=== PATIENT | female | born 1995 | race Caucasian/White ===

== ENCOUNTER 2018-09-12 20:16 | Inpatient (IN) | payer BC, OTHER ==
[~2018-09-12] VITALS: Ht 170.2 cm; Wt 70.1 kg
--- NOTE | 2018-09-12 20:19 | NUR ---
ED Nurse Note: pt brought in by [facility] from [facility] parking lot, pt drank bottle of acetone and took 95 pills of unknown substance, per EMS report. pt currently denies SI/HI/VH/AH, states she doesn't know why she took pills. pt states she felt sad and ingested med/acetone, states she called her friend and her friend called 911. Pt AA&ox4, gcs=15, sinus tach on front desk monitor, skin warm and dry, resp even and unlabored on RA pt reports nausea at this time will cont monitor. BS 88 on field
--- NOTE | 2018-09-12 20:25 | NUR ---
ED Nurse Note: Spoke with Dong at Poison Control regarding Vivance OD: Expect: Tachycardia; Aggitation; N/V. Benzos OK. Can cause seizures and EKG changes. With Q-T prolongation, give Magnesium 1-2 grams. Addendum: 09/12/18 at 2312 by MSCHRAGE Correction: Vyvbeth.
--- NOTE | 2018-09-12 20:30 | NUR ---
ED Nurse Note: accucheck at the bedside was 79, ERMD notified. noted pt vomiting x1, pink and white colored noted. pt cleaned and changed into gown, warm blanket provided for comfort, pt advised to notify staff if needed assist, ERMD aware of pt's condition.
[2018-09-12 20:35] VITALS: BP 114/70
[2018-09-12 21:10] LABS: BASOPHILS % (AUTO) 1.1 % (0.0-2.0); EOSINOPHILS % (AUTO) 0.5 % (0.0-3.0); HEMATOCRIT 38.4 % (37.0-47.0); HEMOGLOBIN 12.7 G/DL (12.0-16.0); LYMPHOCYTES % (AUTO) 20.3 % (20.0-45.0); MEAN CORPUSCULAR VOLUME 83 FL (80-99); MONOCYTES % (AUTO) 6.7 % (1.0-10.0); NEUTROPHILS % (AUTO) 71.4 % (45.0-75.0); PLATELET COUNT 249 K/UL (150-450); RED BLOOD COUNT 4.65 M/UL (4.20-5.40); RED CELL DISTRIBUTION WIDTH 12.6 % (11.6-14.8); WHITE BLOOD COUNT 8.6 K/UL (4.8-10.8)
[2018-09-12 21:12] LABS: APPEARANCE,URINE CLEAR; BILIRUBIN, URINE NEGATIVE (NEGATIVE); COLOR,URINE YELLOW; GLUCOSE, URINE (UA) NEGATIVE (NEGATIVE); KETONES,URINE 4+ (NEGATIVE); LEUKOCYTE ESTERASE ,URINE 1+ (NEGATIVE); NITRITE,URINE NEGATIVE (NEGATIVE); PH,URINE 6 (4.5-8.0); PROTEIN,URINE 1+ (NEGATIVE); UROBILINOGEN,URINE NORMAL MG/DL (0.0-1.0)
[2018-09-12 21:22] LABS: AMMONIA 35 umol/L (11-32); ANION GAP 16 mmol/L (5-15); BLOOD UREA NITROGEN 16 mg/dL (7-18); CALCIUM 9.2 MG/DL (8.5-10.1); CARBON DIOXIDE 20 MMOL/L (21-32); CHLORIDE 103 MMOL/L (98-107); CREATININE 0.8 MG/DL (0.55-1.30); POTASSIUM 3.2 MMOL/L (3.5-5.1); SODIUM 139 MMOL/L (136-145)
[2018-09-12 21:35] VITALS: BP 118/73
[2018-09-12 21:35] LABS: ALANINE AMINOTRANSFERASE 22 U/L (12-78); ALBUMIN 4.4 G/DL (3.4-5.0); ALBUMIN/GLOBULIN RATIO 1.2 (1.0-2.7); ALKALINE PHOSPHATASE 70 U/L (46-116); ASPARTATE AMINO TRANSFERASE 13 U/L (15-37); BILIRUBIN,TOTAL 0.7 MG/DL (0.2-1.0)
--- NOTE | 2018-09-12 21:36 | Emergency Room Report ---
History of Present Illness General Chief Complaint: Overdose Source: Patient Present Illness HPI The patient states that she was feeling sad and took an entire bottle of an over -the-counter antianxiety medication that she got at [facility]. She is unable to recall the name of the medication. She also took about 20 tablets of her Vyvanse. She states that she feels nauseated and has epigastric pain. She did vomit one time prior to arrival. She states that she has been feeling very depressed. She denies alcohol or other drug use. She has no other complaints. Allergies: Coded Allergies: No Known Allergies (Unverified , 09/12/18) Patient History Past Medical History: none, psych hx Social History: Denies: smoking, alcohol use, drug use Now: No Reviewed Nursing Documentation: PMH: Agreed; PSxH: Agreed Nursing Documentation-PMH History Of Psychiatric Problem: Yes - ANXIETY Review of Systems All Other Systems: negative except mentioned in HPI Physical Exam Vital Signs Date Time Temp Pulse Resp B/P (MAP) Pulse Ox O2 Delivery O2 Flow Rate FiO2 09/12/18 20:19 98.1 118 20 99 Room Air Sp02 EP Interpretation: reviewed, normal General Appearance: no apparent distress, alert, GCS 15, non-toxic Head: normocephalic, atraumatic Eyes: bilateral eye normal inspection, bilateral eye PERRL ENT: hearing grossly normal, normal pharynx, no angioedema, normal voice Neck: full range of motion, supple/symm/no masses Respiratory: chest non-tender, lungs clear, normal breath sounds, no respiratory distress, no retraction, no accessory muscle use, speaking full sentences Cardiovascular #1: no edema, tachycardia Gastrointestinal: normal bowel sounds, non tender, soft, non-distended, no guarding, no rebound Rectal: deferred Musculoskeletal: back normal, gait/station normal, normal range of motion, non- tender Neurologic: alert, oriented x3, responsive, motor strength/tone normal, sensory intact, speech normal Psychiatric: depressed affect Skin: normal color, no rash, warm/dry, well hydrated Medical Decision Making Diagnostic Impression: Primary Impression: Intentional drug overdose Additional Impressions: Depression Tylenol overdose ER Course This patient presents with an intentional drug overdose. She denies suicidal ideation. I did obtain a tox level. The acetaminophen level was elevated in the toxic range on the nomogram. I then went back to the patient and asked her if she ingested Tylenol. At first she stated no and then when I asked about acetaminophen she said yes that is what I took. I tried to clarify exactly how many tablets she took and she states that she is not sure she took about half the bottle. She is unsure of the strength of the acetaminophen. She is not sure how many tablets were in the bottle. The patient will be admitted to the ICU for Tylenol overdose. She was started on the Acetadote protocol. She was also given activated charcoal. This patient is critically ill. This patient required complex medical decision- making, aggressive intervention, extensive laboratory workup and monitoring. Critical care time: 40 minutes. Laboratory Tests Test 09/12/18 20:30 White Blood Count 8.6 K/UL (4.8-10.8) Red Blood Count 4.65 M/UL (4.20-5.40) Hemoglobin 12.7 G/DL (12.0-16.0) Hematocrit 38.4 % (37.0-47.0) Mean Corpuscular Volume 83 FL (80-99) Mean Corpuscular Hemoglobin 27.3 PG (27.0-31.0) Mean Corpuscular Hemoglobin Concent 33.1 G/DL (32.0-36.0) Red Cell Distribution Width 12.6 % (11.6-14.8) Platelet Count 249 K/UL (150-450) Mean Platelet Volume 6.4 FL (6.5-10.1) L Neutrophils (%) (Auto) 71.4 % (45.0-75.0) Lymphocytes (%) (Auto) 20.3 % (20.0-45.0) Monocytes (%) (Auto) 6.7 % (1.0-10.0) Eosinophils (%) (Auto) 0.5 % (0.0-3.0) Basophils (%) (Auto) 1.1 % (0.0-2.0) Urine Color Yellow Urine Appearance Clear Urine pH 6 (4.5-8.0) Urine Specific [place] 1.020 (1.005-1.035) Urine Protein 1+ (NEGATIVE) H Urine Glucose (UA) Negative (NEGATIVE) Urine Ketones 4+ (NEGATIVE) H Urine Blood Negative (NEGATIVE) Urine Nitrite Negative (NEGATIVE) Urine Bilirubin Negative (NEGATIVE) Urine Urobilinogen Normal MG/DL (0.0-1.0) Urine Leukocyte Esterase 1+ (NEGATIVE) H Urine RBC 0-2 /HPF (0 - 2) Urine WBC 2-4 /HPF (0 - 2) Urine Squamous Epithelial Cells Few /LPF (NONE/OCC) Urine Bacteria Moderate /HPF (NONE) H Urine Mucus Few /LPF (NONE/OCC) H Urine HCG, Qualitative Negative (NEGATIVE) Sodium Level 139 MMOL/L (136-145) Potassium Level 3.2 MMOL/L (3.5-5.1) L Chloride Level 103 MMOL/L (98-107) Carbon Dioxide Level 20 MMOL/L (21-32) L Anion Gap 16 mmol/L (5-15) H Blood Urea Nitrogen 16 mg/dL (7-18) Creatinine 0.8 MG/DL (0.55-1.30) Estimate Glomerular Filtration Rate > 60 mL/min (>60) Glucose Level 93 MG/DL (74-106) Lactic Acid Level Pending Calcium Level 9.2 MG/DL (8.5-10.1) Total Bilirubin Pending Aspartate Amino Transferase (AST) Pending Alanine Aminotransferase (ALT) Pending Alkaline Phosphatase Pending Ammonia 35 umol/L (11-32) H Troponin I Pending Total Protein Pending Albumin Pending Globulin Pending Thyroid Stimulating Hormone (TSH) Pending Salicylates Level Pending Urine Opiates Screen Negative (NEGATIVE) Acetaminophen Level Pending Urine Barbiturates Screen Negative (NEGATIVE) Phencyclidine (PCP) Screen Negative (NEGATIVE) Urine Amphetamines Screen Positive (NEGATIVE) H Urine Benzodiazepines Screen Negative (NEGATIVE) Urine Cocaine Screen Negative (NEGATIVE) Urine Marijuana (THC) Screen Negative (NEGATIVE) Serum Alcohol Pending EKG Diagnostic Results Rate: normal Rhythm: NSR ST Segments: no acute changes Rhythm Strip Diag. Results EP Interpretation: yes Rate: 100's Rhythm: no PVC's, no ectopy, other - S.tachycardia Last Vital Signs Date Time Temp Pulse Resp B/P (MAP) Pulse Ox O2 Delivery O2 Flow Rate FiO2 09/12/18 20:19 98.1 118 20 99 Room Air Disposition: ADMITTED INPATIENT Condition: Critical Referrals: NOT CHOSEN IPA/,REFERRING (PCP) Noreen Andres DO September 12, 2018 21:36
[2018-09-12] MEDS ORDERED: ACETADOTE IV ONE ×3 (21:45→22:00)
[2018-09-12] MEDS ORDERED: D5W IV ONE ×2 (21:45→22:00)
[2018-09-12] MEDS ORDERED: Activated Charcoal 50gm/240ml Btl ORAL ONE (22:00)
--- NOTE | 2018-09-12 22:00 | NUR ---
ED Nurse Note: noted redness and pt c/o itching on EKG lead area, ekg leads removed for possible allergic reaction, will cont monitor. pt NSR.
--- NOTE | 2018-09-12 22:20 | NUR ---
ED Nurse Note: pt states she has difficulty breathing, no sx resp distress noted, pt currently o2sat 100%, o2 via NC 2L/min started for comfort, pt reports feeling better with oxygen. Notified ERMD, will cont monitor.
[2018-09-12 22:35] VITALS: BP 113/68
[2018-09-12] MEDS ORDERED: LORazepam Inj 2mg/ml 1ml IV PRN (23:00)
[2018-09-12] MEDS ORDERED: Morphine Sulfate 2mg/ml Inj(IV/IM USE ONLY) IVP PRN (23:00)
--- NOTE | 2018-09-12 23:12 | NUR ---
ED Nurse Note: called pipeline.
--- NOTE | 2018-09-12 23:12 | NUR ---
ED Nurse Note: Pt now admits that the Vyvance she took, was for someone else.
[2018-09-12] MEDS: D5 1/2NS 1,000 ML IV SCH (23:24)
--- NOTE | 2018-09-12 23:24 | NUR ---
ED Nurse Note: pt c/o headache, nausea, noted vomiting episode x 1 (black color after administration of charcoal), reports she feels anxious from her condition, medication administered per order. will cont monitor.
--- NOTE | 2018-09-12 23:30 | NUR ---
ED Nurse Note: report given to RN James, pt cleaned and changed, advised RN regarding pt possible allergic to EKG leads.
--- NOTE | 2018-09-12 23:50 | NUR ---
ED Nurse Note: pt transferred to ICU floor, all belongings sent w/ pt, pt vss, resp even and unlabored on o2 via NC = 2L/min, pt states she feels better now after vomiting and medication, airway intact, endorsed care to RN Slava, notified RN regarding about redraw tylenol level at 430am. iv intact and patent.
[2018-09-13] VITALS (23 sets, daily range): BP systolic 11–123; BP diastolic 45–92
--- NOTE | 2018-09-13 | NUR ---
NURSE NOTES: Admitted from ED this 23yo female for drug overdose. Pt arrives with [employer]USTRI[employer] via lucretia in no apparent distress; drowsy but follow commands. On 2l via ZOHREH. RAMOS's; afebrile, NSR, BP 96/60. Currently denies pain. Denies SOB, denies N/V. Pt has PIV on left wrist area, g20 with Acetadote 3100mg in 500ml D5W infusing at 129mls/h as well as D51/2NS infusing at 50ml/h on RAC. Skin cool to touch but dry and intact. No finley cath but pt's bladder area soft; denies having the urge to void. Pt answers questions appropriately but drowsy and falls back to sleep on interview. Denies having suicidal ideation. Will monitor neuro status, level of consciousness, will monitor for signs of bleeding
--- NOTE | 2018-09-13 02:00 | NUR ---
NURSE NOTES: Po[facility] Control Center called to check on pt's status and made sure the protocol for Tylenol overdose is followed. Called ERMD to put on the order for 16hr Acetadote after the present bag finishes and to do Tylenol level, LFT's, coag profile on the 15th hr (1800H;09/13)
[2018-09-13] MEDS ORDERED: D5W IV ONE ×2 (02:30→02:45)
[2018-09-13] MEDS ORDERED: ACETADOTE IV ONE ×2 (02:30→02:45)
--- NOTE | 2018-09-13 03:30 | NUR ---
NURSE NOTES: Acetadote 100mg/kg BW in 1000ml D5W started to run for 16hrs.(wt based on actual wt of 70kgs). Night locker unable to produce label due to the printer being out of order. Med bottle and IV bag barcodes scanned.
[2018-09-13 05:09] LABS: BASOPHILS % (AUTO) 0.8 % (0.0-2.0); HEMATOCRIT 38.3 % (37.0-47.0); HEMOGLOBIN 12.7 G/DL (12.0-16.0); LYMPHOCYTES % (AUTO) 14.2 % (20.0-45.0); MEAN CORPUSCULAR VOLUME 85 FL (80-99); MONOCYTES % (AUTO) 6.3 % (1.0-10.0); NEUTROPHILS % (AUTO) 78.6 % (45.0-75.0); PLATELET COUNT 283 K/UL (150-450); RED BLOOD COUNT 4.53 M/UL (4.20-5.40); WHITE BLOOD COUNT 7.9 K/UL (4.8-10.8)
--- NOTE | 2018-09-13 05:30 | NUR ---
NURSE NOTES: Still sleepy but responds appropriately to questions. No seizures noted. VSS. No ectopy, afebrile. Denies N/V; denies abd pain, denies chest pains. IV sites intact.
[2018-09-13 05:33] LABS: ALANINE AMINOTRANSFERASE 17 U/L (12-78); ALBUMIN 3.7 G/DL (3.4-5.0); ALKALINE PHOSPHATASE 62 U/L (46-116); ANION GAP 13 mmol/L (5-15); ASPARTATE AMINO TRANSFERASE 15 U/L (15-37); BILIRUBIN,TOTAL 0.6 MG/DL (0.2-1.0); BLOOD UREA NITROGEN 14 mg/dL (7-18); CALCIUM 8.4 MG/DL (8.5-10.1); CARBON DIOXIDE 23 MMOL/L (21-32); CHLORIDE 101 MMOL/L (98-107); CREATININE 0.7 MG/DL (0.55-1.30); POTASSIUM 3.2 MMOL/L (3.5-5.1); SODIUM 137 MMOL/L (136-145)
--- NOTE | 2018-09-13 07:13 | NUR ---
HAND-OFF: Report given to Keira Saenz RN.
--- NOTE | 2018-09-13 07:14 | NUR ---
NURSE NOTES: Report received from LULI Ramirez. Pt is sleeping in bed. Oriented x4. Able to answer for questions and follow commands. Sinus rhythm on monitoring engineer. On N/C 2L. 100%. No respiratory distress noted. Kept NPO as per order. IV to left wrist G20 and right AC G20 patent and asymptomatic. Pt is on D5 1/2NS at 50cc/hr and Acetadote 7000mg at 64.688cc/hr. Bed in lowest position. Call light within reach. Will resume plan of care.
--- NOTE | 2018-09-13 09:31 | Pulmonolgy Critical Care Note ---
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 Discussed with: nurses, consultants, human services case managerwireless retail manager - Objective Last 24 Hour Vital Signs Date Time Temp Pulse Resp B/P (MAP) Pulse Ox O2 Delivery O2 Flow Rate FiO2 09/13/18 07:14 Nasal Cannula 2.0 28 09/13/18 07:14 100 Nasal Cannula 2.0 28 09/13/18 07:00 86 24 101/71 (81) 100 09/13/18 06:00 64 15 99/63 (75) 100 09/13/18 05:00 66 15 96/61 (73) 100 09/13/18 04:00 Nasal Cannula 2.0 09/13/18 04:00 97.7 73 16 89/49 (62) 100 09/13/18 03:00 71 17 97/60 (72) 100 09/13/18 02:00 71 17 97/61 (73) 100 09/13/18 01:00 72 17 92/50 (64) 100 09/13/18 00:00 97.9 71 16 96/60 (72) 100 09/13/18 00:00 71 09/13/18 00:00 Nasal Cannula 2.0 09/12/18 23:50 97.2 82 18 112/67 100 Nasal Cannula 2.0 09/12/18 22:35 97.2 86 16 113/68 99 Room Air 09/12/18 21:35 98.1 82 18 118/73 99 Room Air 09/12/18 20:35 87 18 Room Air 09/12/18 20:35 98.1 87 18 114/70 99 Room Air 09/12/18 20:19 98.1 118 20 99 Room Air Status: awake Condition: critical Neck: full ROM Lungs: clear Heart: HR/BP stable, regular Abdomen: non-tender, feeding tube Extremities: edema Decubiti: location Micro: Microbiology Date/Time Source Procedure Growth Status 09/12/18 23:55 Rectum Received Accucheck: 79 Critical Care - Subjective ROS Limited/Unobtainable: Yes Interval Events: 23 year old female brought in by paramedics after taking an entire bottle of an [id number] antianxiety medication that she got at [facility]. She is unable to recall the name of the medication. She also took about 20 tablets of her Vyvanse. She states that she feels nauseated and has epigastric pain. She did vomit one time prior to arrival. She states that she has been feeling very depressed. Condition: critical FI02: 28 I&O: Intake and Output 09/12/18 09/13/18 19:00 07:00 Intake Total 873.676 ml Balance 873.676 ml Intake Oral 0 ml IV Total 873.676 ml # Voids 1 Labs: Laboratory Tests Test 09/12/18 20:29 09/12/18 20:30 09/13/18 04:20 Arterial Blood pH 7.422 (7.350-7.450) Arterial Blood Partial Pressure CO2 29.4 mmHg (35.0-45.0) L Arterial Blood Partial Pressure O2 123.7 mmHg (75.0-100.0) H Arterial Blood HCO3 18.7 mmol/L (22.0-26.0) L Arterial Blood Oxygen Saturation 97.9 % (95-100) Arterial Blood Base Excess -4.4 (-2-2) L Sher Test Positive White Blood Count 8.6 K/UL (4.8-10.8) 7.9 K/UL (4.8-10.8) Red Blood Count 4.65 M/UL (4.20-5.40) 4.53 M/UL (4.20-5.40) Hemoglobin 12.7 G/DL (12.0-16.0) 12.7 G/DL (12.0-16.0) Hematocrit 38.4 % (37.0-47.0) 38.3 % (37.0-47.0) Mean Corpuscular Volume 83 FL (80-99) 85 FL (80-99) Mean Corpuscular Hemoglobin 27.3 PG (27.0-31.0) 28.0 PG (27.0-31.0) Mean Corpuscular Hemoglobin Concent 33.1 G/DL (32.0-36.0) 33.0 G/DL (32.0-36.0) Red Cell Distribution Width 12.6 % (11.6-14.8) 13.0 % (11.6-14.8) Platelet Count 249 K/UL (150-450) 283 K/UL (150-450) Mean Platelet Volume 6.4 FL (6.5-10.1) L 7.1 FL (6.5-10.1) Neutrophils (%) (Auto) 71.4 % (45.0-75.0) 78.6 % (45.0-75.0) H Lymphocytes (%) (Auto) 20.3 % (20.0-45.0) 14.2 % (20.0-45.0) L Monocytes (%) (Auto) 6.7 % (1.0-10.0) 6.3 % (1.0-10.0) Eosinophils (%) (Auto) 0.5 % (0.0-3.0) 0.0 % (0.0-3.0) Basophils (%) (Auto) 1.1 % (0.0-2.0) 0.8 % (0.0-2.0) Urine Color Yellow Urine Appearance Clear Urine pH 6 (4.5-8.0) Urine Specific [place] 1.020 (1.005-1.035) Urine Protein 1+ (NEGATIVE) H Urine Glucose (UA) Negative (NEGATIVE) Urine Ketones 4+ (NEGATIVE) H Urine Blood Negative (NEGATIVE) Urine Nitrite Negative (NEGATIVE) Urine Bilirubin Negative (NEGATIVE) Urine Urobilinogen Normal MG/DL (0.0-1.0) Urine Leukocyte Esterase 1+ (NEGATIVE) H Urine RBC 0-2 /HPF (0 - 2) Urine WBC 2-4 /HPF (0 - 2) Urine Squamous Epithelial Cells Few /LPF (NONE/OCC) Urine Bacteria Moderate /HPF (NONE) H Urine Mucus Few /LPF (NONE/OCC) H Urine HCG, Qualitative Negative (NEGATIVE) Sodium Level 139 MMOL/L (136-145) 137 MMOL/L (136-145) Potassium Level 3.2 MMOL/L (3.5-5.1) L 3.2 MMOL/L (3.5-5.1) L Chloride Level 103 MMOL/L (98-107) 101 MMOL/L (98-107) Carbon Dioxide Level 20 MMOL/L (21-32) L 23 MMOL/L (21-32) Anion Gap 16 mmol/L (5-15) H 13 mmol/L (5-15) Blood Urea Nitrogen 16 mg/dL (7-18) 14 mg/dL (7-18) Creatinine 0.8 MG/DL (0.55-1.30) 0.7 MG/DL (0.55-1.30) Estimat Glomerular Filtration Rate > 60 mL/min (>60) > 60 mL/min (>60) Glucose Level 93 MG/DL (74-106) 154 MG/DL (74-106) H Lactic Acid Level 1.40 mmol/L (0.4-2.0) Calcium Level 9.2 MG/DL (8.5-10.1) 8.4 MG/DL (8.5-10.1) L Total Bilirubin 0.7 MG/DL (0.2-1.0) 0.6 MG/DL (0.2-1.0) Aspartate Amino Transf (AST/SGOT) 13 U/L (15-37) L 15 U/L (15-37) Alanine Aminotransferase (ALT/SGPT) 22 U/L (12-78) 17 U/L (12-78) Alkaline Phosphatase 70 U/L (46-116) 62 U/L (46-116) Ammonia 35 umol/L (11-32) H Troponin I 0.000 ng/mL (0.000-0.056) Total Protein 8.2 G/DL (6.4-8.2) 7.3 G/DL (6.4-8.2) Albumin 4.4 G/DL (3.4-5.0) 3.7 G/DL (3.4-5.0) Globulin 3.8 g/dL 3.6 g/dL Albumin/Globulin Ratio 1.2 (1.0-2.7) 1.0 (1.0-2.7) Thyroid Stimulating Hormone (TSH) 1.175 uiU/mL (0.358-3.740) Salicylates Level 2.5 ug/mL (2.8-20) L Urine Opiates Screen Negative (NEGATIVE) Acetaminophen Level 267 MCG/ML (10-30) *H Urine Barbiturates Screen Negative (NEGATIVE) Phencyclidine (PCP) Screen Negative (NEGATIVE) Urine Amphetamines Screen Positive (NEGATIVE) H Urine Benzodiazepines Screen Negative (NEGATIVE) Urine Cocaine Screen Negative (NEGATIVE) Urine Marijuana (THC) Screen Negative (NEGATIVE) Serum Alcohol < 3 mg/dL Clarence Lovell MD September 13, 2018 09:31
--- NOTE | 2018-09-13 09:58 | NUR ---
NURSE NOTES: Poison control called. Updated pt's current status. Dr Lovell here to see the patient. Updated him with pt's current condition. Orders received. Will carry out the orders.
--- NOTE | 2018-09-13 10:16 | NUR ---
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 ACETAMINOPHEN 267 IS:ACETYLCYSTEINE 247.5ml IV ACETYLCYSTEINE 515.5ml IV CHARCOAL 50gm ZOFRAN 4mg IVP ADMITTED TO ICU DCP TO BE DETERMINED DEPENDING ON THE CARE NEEDED AT TIME OF DC
[2018-09-13] MEDS: Heparin 5000 units/ml inj SUBQ SCH ×2 (10:29→20:48)
--- NOTE | 2018-09-13 10:53 | General Progress Note ---
Assessment/Plan Problem List: (1) Tylenol overdose ICD Codes: T39.1X1A - Poisoning by 4-Aminophenol derivatives, accidental ( unintentional), initial encounter SNOMED: 191399679 (2) Depression ICD Codes: F32.9 - Major depressive disorder, single episode, unspecified SNOMED: 22219640 (3) Intentional drug overdose ICD Codes: T50.902A - Poisoning by unspecified drugs, medicaments and biological substances, intentional self-harm, initialencounter SNOMED: 80063192 Assessment/Plan: no elevated LFT's on mucomyst transferring out of ICU will fu Subjective ROS Limited/Unobtainable: Yes Allergies: Coded Allergies: No Known Allergies (Unverified , 09/12/18) Objective Last 24 Hour Vital Signs Date Time Temp Pulse Resp B/P (MAP) Pulse Ox O2 Delivery O2 Flow Rate FiO2 09/13/18 07:14 Nasal Cannula 2.0 28 09/13/18 07:14 100 Nasal Cannula 2.0 28 09/13/18 07:00 86 24 101/71 (81) 100 09/13/18 06:00 64 15 99/63 (75) 100 09/13/18 05:00 66 15 96/61 (73) 100 09/13/18 04:00 Nasal Cannula 2.0 09/13/18 04:00 97.7 73 16 89/49 (62) 100 09/13/18 03:00 71 17 97/60 (72) 100 09/13/18 02:00 71 17 97/61 (73) 100 09/13/18 01:00 72 17 92/50 (64) 100 09/13/18 00:00 97.9 71 16 96/60 (72) 100 09/13/18 00:00 71 09/13/18 00:00 Nasal Cannula 2.0 09/12/18 23:50 97.2 82 18 112/67 100 Nasal Cannula 2.0 09/12/18 22:35 97.2 86 16 113/68 99 Room Air 09/12/18 21:35 98.1 82 18 118/73 99 Room Air 09/12/18 20:35 87 18 Room Air 09/12/18 20:35 98.1 87 18 114/70 99 Room Air 09/12/18 20:19 98.1 118 20 99 Room Air Intake and Output 09/12/18 09/13/18 19:00 07:00 Intake Total 873.676 ml Balance 873.676 ml Intake Oral 0 ml IV Total 873.676 ml # Voids 1 Laboratory Tests 09/12/18 20:29: Arterial Blood pH 7.422, Arterial Blood Partial Pressure CO2 29.4L, Arterial Blood Partial Pressure O2 123.7H, Arterial Blood HCO3 18.7L, Arterial Blood Oxygen Saturation 97.9, Arterial Blood Base Excess -4.4L, Sher Test Positive 09/12/18 20:30: White Blood Count 8.6, Red Blood Count 4.65, Hemoglobin 12.7, Hematocrit 38.4, Mean Corpuscular Volume 83, Mean Corpuscular Hemoglobin 27.3, Mean Corpuscular Hemoglobin Concent 33.1, Red Cell Distribution Width 12.6, Platelet Count 249, Mean Platelet Volume 6.4L, Neutrophils (%) (Auto) 71.4, Lymphocytes (%) (Auto) 20.3, Monocytes (%) (Auto) 6.7, Eosinophils (%) (Auto) 0.5, Basophils (%) (Auto ) 1.1, Urine Color Yellow, Urine Appearance Clear, Urine pH 6, Urine Specific [place] 1.020, Urine Protein 1+H, Urine Glucose (UA) Negative, Urine Ketones 4+H , Urine Blood Negative, Urine Nitrite Negative, Urine Bilirubin Negative, Urine Urobilinogen Normal, Urine Leukocyte Esterase 1+H, Urine RBC 0-2, Urine WBC 2-4 , Urine Squamous Epithelial Cells Few, Urine Bacteria ModerateH, Urine Mucus FewH, Urine HCG, Qualitative Negative, Sodium Level 139, Potassium Level 3.2L, Chloride Level 103, Carbon Dioxide Level 20L, Anion Gap 16H, Blood Urea Nitrogen 16, Creatinine 0.8, Estimat Glomerular Filtration Rate > 60, Glucose Level 93, Lactic Acid Level 1.40, Calcium Level 9.2, Total Bilirubin 0.7, Aspartate Amino Transf (AST/SGOT) 13L, Alanine Aminotransferase (ALT/SGPT) 22, Alkaline Phosphatase 70, Ammonia 35H, Troponin I 0.000, Total Protein 8.2, Albumin 4.4, Globulin 3.8, Albumin/Globulin Ratio 1.2, Thyroid Stimulating Hormone (TSH) 1.175, Salicylates Level 2.5L, Urine Opiates Screen Negative, Acetaminophen Level 267*H, Urine Barbiturates Screen Negative, Phencyclidine ( PCP) Screen Negative, Urine Amphetamines Screen PositiveH, Urine Benzodiazepines Screen Negative, Urine Cocaine Screen Negative, Urine Marijuana (THC) Screen Negative, Serum Alcohol < 3 09/13/18 04:20: White Blood Count 7.9, Red Blood Count 4.53, Hemoglobin 12.7, Hematocrit 38.3, Mean Corpuscular Volume 85, Mean Corpuscular Hemoglobin 28.0, Mean Corpuscular Hemoglobin Concent 33.0, Red Cell Distribution Width 13.0, Platelet Count 283, Mean Platelet Volume 7.1, Neutrophils (%) (Auto) 78.6H, Lymphocytes (%) (Auto) 14.2L, Monocytes (%) (Auto) 6.3, Eosinophils (%) (Auto) 0.0, Basophils (%) (Auto ) 0.8, Sodium Level 137, Potassium Level 3.2L, Chloride Level 101, Carbon Dioxide Level 23, Anion Gap 13, Blood Urea Nitrogen 14, Creatinine 0.7, Estimat Glomerular Filtration Rate > 60, Glucose Level 154H, Calcium Level 8.4L, Total Bilirubin 0.6, Aspartate Amino Transf (AST/SGOT) 15, Alanine Aminotransferase ( ALT/SGPT) 17, Alkaline Phosphatase 62, Total Protein 7.3, Albumin 3.7, Globulin 3.6, Albumin/Globulin Ratio 1.0 Height (Feet): 5 Height (Inches): 7.00 Weight (Pounds): 154 General Appearance: no apparent distress EENT: normal ENT inspection Neck: supple Cardiovascular: normal rate Respiratory/Chest: decreased breath sounds Abdomen: normal bowel sounds, non tender, soft Extremities: non-tender Eulalio Camacho MD September 13, 2018 10:53
--- NOTE | 2018-09-13 12:07 | NUR ---
NURSE NOTES: Dr Medina here to see the patient. Order for regular diet received, noted, and carried out. Will also hold transfer until we get Acetaminophen and LFT levels as per Dr Medina's order.
--- NOTE | 2018-09-13 12:26 | History & Physical ---
History and Physical History & Physicial Logan Medina MD September 13, 2018 12:26
--- NOTE | 2018-09-13 14:10 | NUR ---
Social Work This Sw met with patient, currently in the ICU to provide support. Patient is listed as self pay; patient explains she is on her mothers insurance (this SW informed patient for mother to bring in copy of insurance cards as able, to be provided to admitting). Patient plans to discharge to home with her mother, who can assist as needed. Patient declined substance abuse. 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 No other needs or concerns at this time.
--- NOTE | 2018-09-13 14:35 | NUR ---
NURSE NOTES: Pt had 80% of dinner at 1300. Pt is sleeping in bed. No acute distress noted. Afebrile. Attended all needs. Will continue to monitor.
--- NOTE | 2018-09-13 15:22 | Cardiology Report ---
APPROVED REPORT EKG Measurement Heart [id number] FL [id number] Sinus tachycardia Otherwise normal ECG
--- NOTE | 2018-09-13 16:00 | NUR ---
*-* INSURANCE *-* ALL CLINICALS AND REVIEWS HAVE BEEN FAXED TO: LILIANA PARR AUTH# [id number] FAX ALL CLINICALS TO [phone] Addendum: 09/13/18 at 1617 by CAIO QUINTANA NCM:[place] [phone] [place] [phone] REF#[id number]
--- NOTE | 2018-09-13 17:05 | NUR ---
NURSE NOTES: Dr Condon here to see the patient. Updated her with pt's current condition. Pt was assisted to walk to the restroom to void. Pt is back to bed and resting. No acute distress noted.
[2018-09-13] MEDS: D5 1/2NS 1,000 ML IV SCH (17:49)
[2018-09-13 18:13] LABS: ALANINE AMINOTRANSFERASE 21 U/L (12-78); ALBUMIN 3.7 G/DL (3.4-5.0); ALKALINE PHOSPHATASE 63 U/L (46-116); ASPARTATE AMINO TRANSFERASE 13 U/L (15-37); BILIRUBIN,DIRECT 0.1 MG/DL (0.0-0.3); BILIRUBIN,TOTAL 0.4 MG/DL (0.2-1.0)
[2018-09-13 18:32] LABS: INR 1.2 (0.9-1.1)
--- NOTE | 2018-09-13 19:24 | NUR ---
HAND-OFF: Report given to LULI Ramirez.
--- NOTE | 2018-09-13 19:30 | NUR ---
NURSE NOTES: Received pt in no acute distress; AAOx4; RAMOS's, currently denies pains, denies N/V; denies abdominal pains; denies SOB. On RA saturating 100%. afebrile, NSR; BP stable. PIV sites on RAC patent with IVF of D51/2NS infusing at 50ml/h. HL on Left wrist area intact. Acetadote infusion just ended. Pt for transfer to Med Surg floor with sitter. Plan of care explained to pt. Denies suicidal ideation.
--- NOTE | 2018-09-13 19:45 | History and Physical Report ---
DATE OF ADMISSION: 09/12/2018 CHIEF COMPLAINT: Overdosed on medication. HISTORY OF PRESENT ILLNESS: This is a 23-year-old very delightful female with past medical history significant for depression and anxiety with history of recent tonsillectomy, who presented to the emergency room complaining about general body ache. She stated that she was feeling sad and depressed. She took [id number]-[id number] antiemetic medication acetaminophen, which she got from [employer] [facility]. She is unable to recall the name of the medication initially, but after that she stated it was acetaminophen and she took about 20 tablets of Vyvanse. She felt nauseated and started having abdominal pain, chest wall pain, and started vomiting prior to arrival to the ER. Shortly after initial evaluation in the emergency room, the patient was noted to have Tylenol level of 267 and amphetamine positive on urine drug screen, and subsequently the patient was admitted to the hospital with Tylenol overdose as well as major depression. PAST MEDICAL HISTORY/PAST SURGICAL HISTORY: As above, history of depression and anxiety as well as tonsillectomy. MEDICATIONS: At home, please refer to medication reconciliation. ALLERGIES: No known drug allergies. SOCIAL HISTORY: Denies any substance abuse. Denies any alcohol abuse. 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 She lives with her mother. FAMILY HISTORY: Noncontributory. REVIEW OF SYSTEMS: Mostly as above. Denies any dysuria, frequency, or hematuria. Complained about chest wall tenderness. Denies any loss of consciousness. Denies any fall or head trauma. Denies any prior history of suicidal attempts. She does not have own gun, or she denies any history of prior inpatient psychiatric requirement. PHYSICAL EXAMINATION: VITAL SIGNS: Temperature 98.1, pulse 118, respirations 20, and blood pressure 101/71. GENERAL: The patient is awake and responsive, in no acute distress. Poor eye contact. HEAD AND NECK: Pupils are equal and reactive to light. Extraocular movements intact. Neck was supple. No JVD. LUNGS: Good air entry. No wheeze or rales. HEART: S1, S2. Regular rhythm. No gallops. ABDOMEN: Soft, nondistended, and nontender. Positive bowel sounds. EXTREMITIES: No cyanosis, clubbing, or edema. NEUROLOGIC: Cranial nerves II through XII grossly intact. Motor is 5/5 in all extremities. Gait is intact. RECTAL/GENITOURINARY: Refused and deferred. PSYCHIATRIC: Mood and affect is intact. LABORATORY DATA: On admission from the ER, WBC 8.6, hemoglobin 12, hematocrit 38, and platelets 249. Sodium 139, potassium 3.2, chloride 103, bicarbonate 20, BUN 16, and creatinine 0.8. Glucose 93. Lactic acid is 1.40. Troponin 0.00. AST 13, ALT 22, and alkaline phosphatase 70. Ammonia level 0.00. Total protein is 8.2. TSH is 1.175. The patient's salicylate level is 2.5. Acetaminophen level is 267. Alcohol level less than 3. Urine drug screen is positive for amphetamine. ABG - pH of 7.42, pCO2 of 29, and pO2 of 123. Urinalysis, +4 ketones, moderate bacteria, and +1 leukocyte. Negative beta-hCG. ASSESSMENT: 1. Intentional overdose on the medication. 2. Tylenol overdose. 3. Depression and anxiety. PLAN: Admit the patient to ICU. We will follow up with the Tylenol toxicity protocol with the start on Acetadote. We will follow up with the charcoal. Monitor laboratory closely including liver function tests. Follow up with Dr. Lovell from Pulmonary Critical Care and Dr. Camacho from GI. Logan Medina M.D. DR: JESSICA JOB#: [id number] CC:
--- NOTE | 2018-09-13 21:40 | NUR ---
NURSE NOTES: Patient transferred up to 301-2 via hospital bed. Report taken from LULI Ramirez. Mikel Nelson at bedside. Addendum: 09/13/18 at 2208 by Ivan Delgado RN Patient is awake and in bed, A&Ox4. No signs of distress on room air. Having a minor headache, otherwise no further pain. Patient is in a pleasant mood. IV site Lt FA c/d/i and patent, no fluids. IV site Rt AC, c/d/i and patent running D5 1/2 NS @ 50mls/hr. Patient has no present skin issues. Continue to monitor, bed in lowest position, call light within reach.
--- NOTE | 2018-09-13 21:40 | NUR ---
NURSE NOTES: Transferred per bed to 301-2 with sitter. Pt AAOx4, no distress; VSS. Belongings with pt and accounted for; Hand off to LULI Love
[2018-09-13] MEDS ORDERED: LORazepam Inj 2mg/ml 1ml IV PRN ×2 (21:44→21:58)
[2018-09-13] MEDS ORDERED: Morphine Sulfate 2mg/ml Inj(IV/IM USE ONLY) IVP PRN ×2 (21:44→21:58)
[2018-09-13] MEDS ORDERED: D5 1/2NS 1,000 ML IV SCH ×2 (21:44→21:57)
--- NOTE | 2018-09-13 23:00 | Consultation ---
DATE OF CONSULTATION: 09/13/2018 HISTORY: This is a 23-year-old female with a history of ADD, anxiety, and depression, who was admitted to the ICU at [facility] status post suicide attempt, overdose on half a bottle of Tylenol. She does not know the number of the pills that she has taken. The patient stated that she is also taking Vyvanse that being prescribed by her psychiatrist who is her therapist's brother. The patient could not recall the name of the psychiatrist. The patient stated that recently she has been more depressed as her father is severely sick, has severe arthritis and planning for divorce, and the brother is also using drugs at home and has other behavior issues. The patient is going through a breakup her Vyvanse 70 mg b.i.d. The patient is more agitated and depressed. Therefore, she stated she took the Tylenol to alleviate her emotional pain not a suicide attempt. The patient has poor insight into the situation she is in. The patient lives along with her mother. No psychotic or manic symptoms. PAST PSYCHIATRIC HISTORY: She stated that she has no suicidal attempt in the past. No psychiatric hospitalization. She is seeing therapy for anxiety and depression. PAST MEDICAL HISTORY: Nonsignificant. ALLERGIES: No known drug allergies. MEDICATIONS: She takes only Vyvanse. She denies taking any other psychotropic medications. SUBSTANCE ABUSE HISTORY: Denies using illicit drug use or alcohol. She is a nonsmoker. MENTAL STATUS EXAMINATION: The patient is alert and oriented x4, cooperative, and pleasant. No psychomotor agitation or retardation. Mood is neutral. Affect is blunted. Congruent with mood and appropriate. Thought process is liner and goal oriented. Thought content, no suicidal or homicidal ideations. No psychotic symptoms. No delusions. No AVH. Insight and judgment are fair. ASSESSMENT: The patient is in ICU due to hypotension and unstable vital signs. The patient denies any suicide attempt. [place] I ADD, major depressive disorder, anxiety disorder. [place] II Deferred. [place] III Status post suicide attempt. [place] IV Low to moderate. [place] V 40. PLAN: 1. She is not an imminent danger to self or others. The patient is not holdable. 2. The patient will not be started on any psychotropic medication at this time. 3. We will attempt to gather collateral information from the family and psychiatrist. Ariela Condon M.D. DR: NATALIE JOB#: [id number] CC:
--- NOTE | 2018-09-13 23:00 | NUR ---
NURSE NOTES: Poison control called in regards to lab testing at 1740. They asked if further updated labs could be done to see if patient was still in need of medication since levels were within their specific range.
[2018-09-13 23:46] LABS: ANION GAP 9 mmol/L (5-15); BLOOD UREA NITROGEN 12 mg/dL (7-18); CALCIUM 8.5 MG/DL (8.5-10.1); CARBON DIOXIDE 27 MMOL/L (21-32); CHLORIDE 107 MMOL/L (98-107); CREATININE 0.8 MG/DL (0.55-1.30); POTASSIUM 3.4 MMOL/L (3.5-5.1); SODIUM 142 MMOL/L (136-145)
[2018-09-13 23:47] LABS: INR 1.2 (0.9-1.1)
[2018-09-13 23:50] LABS: ALANINE AMINOTRANSFERASE 20 U/L (12-78); ALBUMIN 3.5 G/DL (3.4-5.0); ALBUMIN/GLOBULIN RATIO 1.1 (1.0-2.7); ALKALINE PHOSPHATASE 64 U/L (46-116); ASPARTATE AMINO TRANSFERASE 12 U/L (15-37); BILIRUBIN,TOTAL 0.2 MG/DL (0.2-1.0)
--- NOTE | 2018-09-13 23:57 | NUR ---
NURSE NOTES: Followed up with poison control with updated labs. They will close the case per normal lab results.
[2018-09-14 00:19] VITALS: BP 107/73
[2018-09-14 04:03] VITALS: BP 105/60
--- NOTE | 2018-09-14 07:00 | General Progress Note ---
Assessment/Plan Problem List: (1) Tylenol overdose ICD Codes: T39.1X1A - Poisoning by 4-Aminophenol derivatives, accidental ( unintentional), initial encounter SNOMED: 132575411 (2) Depression ICD Codes: F32.9 - Major depressive disorder, single episode, unspecified SNOMED: 78738652 (3) Intentional drug overdose ICD Codes: T50.902A - Poisoning by unspecified drugs, medicaments and biological substances, intentional self-harm, initialencounter SNOMED: 69328377 Assessment/Plan: no elevated LFT's completed mucomyst fu psych will fu Subjective ROS Limited/Unobtainable: Yes Allergies: Coded Allergies: No Known Allergies (Unverified , 09/12/18) Subjective no event Objective Last 24 Hour Vital Signs Date Time Temp Pulse Resp B/P (MAP) Pulse Ox O2 Delivery O2 Flow Rate FiO2 09/14/18 04:03 97.5 66 17 105/60 (75) 98 09/14/18 00:19 98.1 77 16 107/73 (84) 98 09/13/18 22:12 Room Air 09/13/18 21:40 98.2 70 18 114/72 (86) 98 09/13/18 21:00 71 14 95/65 (75) 100 09/13/18 20:00 Room Air 09/13/18 20:00 98.3 73 14 93/52 (66) 100 09/13/18 20:00 73 09/13/18 19:11 98 Room Air 21 09/13/18 19:11 Room Air 21 09/13/18 19:00 105 16 105/69 (81) 97 09/13/18 18:00 83 14 110/82 (91) 100 09/13/18 17:00 92 19 98/65 (76) 100 09/13/18 16:00 98.6 83 17 98/65 (76) 99 09/13/18 16:00 Nasal Cannula 2.0 09/13/18 15:47 101 09/13/18 15:00 71 15 91/45 (60) 99 09/13/18 14:00 75 16 106/70 (82) 99 09/13/18 13:00 84 18 103/69 (80) 100 09/13/18 12:00 Nasal Cannula 2.0 09/13/18 12:00 97.9 76 17 103/69 (80) 100 09/13/18 11:59 89 09/13/18 11:00 79 18 99/55 (70) 100 09/13/18 10:00 80 18 123/72 (89) 99 09/13/18 09:00 80 15 112/75 (87) 100 09/13/18 08:00 98.2 62 16 107/92 (97) 100 09/13/18 08:00 Nasal Cannula 2.0 09/13/18 07:36 59 09/13/18 07:14 Nasal Cannula 2.0 28 09/13/18 07:14 100 Nasal Cannula 2.0 28 Intake and Output 09/13/18 09/14/18 19:00 07:00 Intake Total 1611.568 ml 690 ml Balance 1611.568 ml 690 ml Intake Oral 300 ml 640 ml IV Total 1311.568 ml 50 ml # Voids 2 1 Laboratory Tests 09/13/18 17:40: Prothrombin Time 13.0H, Prothromb Time International Ratio 1.2H, Activated Partial Thromboplast Time 30, Total Bilirubin 0.4, Direct Bilirubin 0.1, Aspartate Amino Transf (AST/SGOT) 13L, Alanine Aminotransferase (ALT/SGPT) 21, Alkaline Phosphatase 63, Total Protein 6.8, Albumin 3.7, Acetaminophen Level 10 09/13/18 23:26: Prothrombin Time 12.5H, Prothromb Time International Ratio 1.2H, Total Bilirubin 0.2, Aspartate Amino Transf (AST/SGOT) 12L, Alanine Aminotransferase ( ALT/SGPT) 20, Alkaline Phosphatase 64, Total Protein 6.8, Albumin 3.5, Acetaminophen Level < 2L, Sodium Level 142, Potassium Level 3.4L, Chloride Level 107, Carbon Dioxide Level 27, Anion Gap 9, Blood Urea Nitrogen 12, Creatinine 0.8, Estimat Glomerular Filtration Rate > 60, Glucose Level 128H, Calcium Level 8.5, Globulin 3.3, Albumin/Globulin Ratio 1.1 Height (Feet): 5 Height (Inches): 7.00 Weight (Pounds): 154 General Appearance: alert EENT: normal ENT inspection Neck: supple Cardiovascular: normal rate Respiratory/Chest: lungs clear Abdomen: normal bowel sounds, non tender, soft Extremities: non-tender Eulalio Camacho MD September 14, 2018 07:00
--- NOTE | 2018-09-14 07:11 | NUR ---
HAND-OFF: Report given to LULI Allen. Patient is in bed asleep, VS stable. Poison Control closed patients case last night..
--- NOTE | 2018-09-14 07:50 | NUR ---
NURSE NOTES: During shift change patient asleep with out no distress sitter at bed side, bed at low position locked will continue to monitor.
--- NOTE | 2018-09-14 08:30 | NUR ---
CHARGE NURSE NOTE: Spoke with patient, alert, oriented x4. Pt states that she does not have suicidal ideations.
--- NOTE | 2018-09-14 08:35 | Pulmonology Progress Note ---
Assessment/Plan Assessment/Plan ASSESSMENT Tylenol OD Intentional drug OD Amphetamine abuse Depression Hypokalemia Hypo Mg PLAN OF CARE transferred from ICU to MS floor IVF s/p Acedote LFT and bili stable Tylenol level down to <2, a/emetic prn diet as tolerated replace lytes further as needed DVT prophylaxis counselor at law on abstinence from street drugs replace Mg sitter at the bedside for safety pt follows up as outpt with therapist recommend psych eval for dc clearance, medically stable case discussed and evaluated by supervising physician Subjective Allergies: Coded Allergies: No Known Allergies (Unverified , 09/12/18) Subjective transferred to [place] stable still depressed, denies SI sitter at the bedside Objective Last 24 Hour Vital Signs Date Time Temp Pulse Resp B/P (MAP) Pulse Ox O2 Delivery O2 Flow Rate FiO2 09/14/18 04:03 97.5 66 17 105/60 (75) 98 09/14/18 00:19 98.1 77 16 107/73 (84) 98 09/13/18 22:12 Room Air 09/13/18 21:40 98.2 70 18 114/72 (86) 98 09/13/18 21:00 71 14 95/65 (75) 100 09/13/18 20:00 Room Air 09/13/18 20:00 98.3 73 14 93/52 (66) 100 09/13/18 20:00 73 09/13/18 19:11 98 Room Air 21 09/13/18 19:11 Room Air 21 09/13/18 19:00 105 16 105/69 (81) 97 09/13/18 18:00 83 14 110/82 (91) 100 09/13/18 17:00 92 19 98/65 (76) 100 09/13/18 16:00 98.6 83 17 98/65 (76) 99 09/13/18 16:00 Nasal Cannula 2.0 09/13/18 15:47 101 09/13/18 15:00 71 15 91/45 (60) 99 09/13/18 14:00 75 16 106/70 (82) 99 09/13/18 13:00 84 18 103/69 (80) 100 09/13/18 12:00 Nasal Cannula 2.0 09/13/18 12:00 97.9 76 17 103/69 (80) 100 09/13/18 11:59 89 09/13/18 11:00 79 18 99/55 (70) 100 09/13/18 10:00 80 18 123/72 (89) 99 09/13/18 09:00 80 15 112/75 (87) 100 Intake and Output 09/13/18 09/14/18 19:00 07:00 Intake Total 1611.568 ml 690 ml Balance 1611.568 ml 690 ml Intake Oral 300 ml 640 ml IV Total 1311.568 ml 50 ml # Voids 2 1 General Appearance: no acute distress HEENT: normocephalic, atraumatic, anicteric, mucous membranes moist Respiratory/Chest: lungs clear, no respiratory distress Cardiovascular: normal peripheral pulses, normal rate, regular rhythm, no JVD Abdomen: normal bowel sounds, soft, non tender, non distended Extremities: no edema Skin: rash Neurologic/Psychiatric: alert, oriented x 3, responsive, depressed affect Musculoskeletal: normal muscle bulk Microbiology Date/Time Source Procedure Growth Status 09/12/18 20:30 Urine,Clean Catch Urine Culture - Final NO GROWTH AFTER 48 HOURS Complete 09/12/18 23:55 Rectum Received Laboratory Tests 09/13/18 17:40: Prothrombin Time 13.0H, Prothromb Time International Ratio 1.2H, Activated Partial Thromboplast Time 30, Total Bilirubin 0.4, Direct Bilirubin 0.1, Aspartate Amino Transf (AST/SGOT) 13L, Alanine Aminotransferase (ALT/SGPT) 21, Alkaline Phosphatase 63, Total Protein 6.8, Albumin 3.7, Acetaminophen Level 10 09/13/18 23:26: Prothrombin Time 12.5H, Prothromb Time International Ratio 1.2H, Total Bilirubin 0.2, Aspartate Amino Transf (AST/SGOT) 12L, Alanine Aminotransferase ( ALT/SGPT) 20, Alkaline Phosphatase 64, Total Protein 6.8, Albumin 3.5, Acetaminophen Level < 2L, Sodium Level 142, Potassium Level 3.4L, Chloride Level 107, Carbon Dioxide Level 27, Anion Gap 9, Blood Urea Nitrogen 12, Creatinine 0.8, Estimat Glomerular Filtration Rate > 60, Glucose Level 128H, Calcium Level 8.5, Globulin 3.3, Albumin/Globulin Ratio 1.1 Current Medications Medications (Trade) Dose Ordered Sig/Roge Route PRN Reason Start Time Stop Time Status Last Admin Dose Admin Dextrose (Dextrose 50%) 25 ml Q30M PRN IV Hypoglycemia 09/13/18 22:00 10/12/18 22:59 Dextrose (Dextrose 50%) 50 ml Q30M PRN IV Hypoglycemia 09/13/18 22:00 10/13/18 21:59 Dextrose/Sodium Chloride 1,000 ml @ 50 mls/hr Q20H IV 09/13/18 21:57 10/13/18 21:56 Heparin Sodium (Porcine) (Heparin 5000 units/ml) 5,000 units EVERY 12 HOURS SUBQ 09/14/18 09:00 10/13/18 08:59 Lorazepam (Ativan 2mg/ml 1ml) 0.5 mg Q4H PRN IV For Anxiety 09/13/18 21:58 09/20/18 21:57 Morphine Sulfate (Morphine Sulfate) 1 mg Q4H PRN IVP For Pain 09/13/18 21:58 09/20/18 21:57 Ondansetron HCl (Zofran) 4 mg Q6H PRN IVP Nausea & Vomiting 09/13/18 21:58 10/13/18 21:57 Miladis Gordon [employer]ER September 14, 2018 08:35
[2018-09-14 08:48] VITALS: BP 109/71
[2018-09-14] MEDS ORDERED: Heparin 5000 units/ml inj SUBQ SCH ×2 (09:00)
[2018-09-14 09:43] LABS: ALANINE AMINOTRANSFERASE 16 U/L (12-78); ALBUMIN 3.4 G/DL (3.4-5.0); ALBUMIN/GLOBULIN RATIO 1.1 (1.0-2.7); ALKALINE PHOSPHATASE 57 U/L (46-116); ANION GAP 6 mmol/L (5-15); ASPARTATE AMINO TRANSFERASE 10 U/L (15-37); BILIRUBIN,TOTAL 0.2 MG/DL (0.2-1.0); BLOOD UREA NITROGEN 12 mg/dL (7-18); CALCIUM 8.5 MG/DL (8.5-10.1); CARBON DIOXIDE 26 MMOL/L (21-32); CHLORIDE 109 MMOL/L (98-107); CREATININE 0.8 MG/DL (0.55-1.30); SODIUM 141 MMOL/L (136-145)
[2018-09-14 12:00] VITALS: BP 102/64
--- NOTE | 2018-09-14 14:20 | Internal Med Progress Note ---
Subjective Date of Service: September 14, 2018 Physician Name Jose Hess Attending Physician Logan Medina MD Current Medications Medications (Trade) Dose Ordered Sig/Roge Route PRN Reason Start Time Stop Time Status Last Admin Dose Admin Dextrose (Dextrose 50%) 25 ml Q30M PRN IV Hypoglycemia 09/13/18 22:00 10/12/18 22:59 Dextrose (Dextrose 50%) 50 ml Q30M PRN IV Hypoglycemia 09/13/18 22:00 10/13/18 21:59 Dextrose/Sodium Chloride 1,000 ml @ 50 mls/hr Q20H IV 09/13/18 21:57 10/13/18 21:56 Heparin Sodium (Porcine) (Heparin 5000 units/ml) 5,000 units EVERY 12 HOURS SUBQ 09/14/18 09:00 10/13/18 08:59 09/14/18 09:03 Lorazepam (Ativan 2mg/ml 1ml) 0.5 mg Q4H PRN IV For Anxiety 09/13/18 21:58 09/20/18 21:57 Morphine Sulfate (Morphine Sulfate) 1 mg Q4H PRN IVP For Pain 09/13/18 21:58 09/20/18 21:57 Ondansetron HCl (Zofran) 4 mg Q6H PRN IVP Nausea & Vomiting 09/13/18 21:58 10/13/18 21:57 Allergies: Coded Allergies: No Known Allergies (Unverified , 09/12/18) ROS Limited/Unobtainable: No Constitutional: Reports: no symptoms HEENT: Reports: no symptoms Cardiovascular: Reports: no symptoms Respiratory: Reports: no symptoms Gastrointestinal/Abdominal: Reports: no symptoms Genitourinary: Reports: no symptoms Neurologic/Psychiatric: Reports: no symptoms Subjective 23 YO F admitted with tylenol overdose. Cover for Int Med-DR Medina. Objective Last Vital Signs Date Time Temp Pulse Resp B/P (MAP) Pulse Ox O2 Delivery O2 Flow Rate FiO2 09/14/18 08:48 97.5 79 16 109/71 (84) 98 09/13/18 22:12 Room Air 09/13/18 19:11 21 09/13/18 16:00 2.0 Laboratory Tests Test 09/13/18 17:40 09/13/18 23:26 09/14/18 08:45 Prothrombin Time 13.0 SEC (9.30-11.50) H 12.5 SEC (9.30-11.50) H Prothromb Time International Ratio 1.2 (0.9-1.1) H 1.2 (0.9-1.1) H Activated Partial Thromboplast Time 30 SEC (23-33) Total Bilirubin 0.4 MG/DL (0.2-1.0) 0.2 MG/DL (0.2-1.0) 0.2 MG/DL (0.2-1.0) Direct Bilirubin 0.1 MG/DL (0.0-0.3) Aspartate Amino Transf (AST/SGOT) 13 U/L (15-37) L 12 U/L (15-37) L 10 U/L (15-37) L Alanine Aminotransferase (ALT/SGPT) 21 U/L (12-78) 20 U/L (12-78) 16 U/L (12-78) Alkaline Phosphatase 63 U/L (46-116) 64 U/L (46-116) 57 U/L (46-116) Total Protein 6.8 G/DL (6.4-8.2) 6.8 G/DL (6.4-8.2) 6.5 G/DL (6.4-8.2) Albumin 3.7 G/DL (3.4-5.0) 3.5 G/DL (3.4-5.0) 3.4 G/DL (3.4-5.0) Acetaminophen Level 10 MCG/ML (10-30) < 2 MCG/ML (10-30) L Sodium Level 142 MMOL/L (136-145) 141 MMOL/L (136-145) Potassium Level 3.4 MMOL/L (3.5-5.1) L 4.0 MMOL/L (3.5-5.1) Chloride Level 107 MMOL/L (98-107) 109 MMOL/L (98-107) H Carbon Dioxide Level 27 MMOL/L (21-32) 26 MMOL/L (21-32) Anion Gap 9 mmol/L (5-15) 6 mmol/L (5-15) Blood Urea Nitrogen 12 mg/dL (7-18) 12 mg/dL (7-18) Creatinine 0.8 MG/DL (0.55-1.30) 0.8 MG/DL (0.55-1.30) Estimat Glomerular Filtration Rate > 60 mL/min (>60) > 60 mL/min (>60) Glucose Level 128 MG/DL (74-106) H 97 MG/DL (74-106) Calcium Level 8.5 MG/DL (8.5-10.1) 8.5 MG/DL (8.5-10.1) Globulin 3.3 g/dL 3.1 g/dL Albumin/Globulin Ratio 1.1 (1.0-2.7) 1.1 (1.0-2.7) Magnesium Level 1.7 MG/DL (1.8-2.4) L Microbiology Date/Time Source Procedure Growth Status 09/12/18 20:30 Urine,Clean Catch Urine Culture - Final NO GROWTH AFTER 48 HOURS Complete 09/12/18 23:55 Rectum Received Intake and Output 09/13/18 09/14/18 19:00 07:00 Intake Total 1611.568 ml 690 ml Balance 1611.568 ml 690 ml Intake Oral 300 ml 640 ml IV Total 1311.568 ml 50 ml # Voids 2 1 Objective PHYSICAL EXAMINATION: GENERAL: The patient is awake and responsive, in no acute distress. Poor eye contact. HEAD AND NECK: Pupils are equal and reactive to light. Extraocular movements intact. Neck was supple. No JVD. LUNGS: Good air entry. No wheeze or rales. HEART: S1, S2. Regular rhythm. No gallops. ABDOMEN: Soft, nondistended, and nontender. Positive bowel sounds. EXTREMITIES: No cyanosis, clubbing, or edema. NEUROLOGIC: Cranial nerves II through XII grossly intact. Motor is 5/5 in all extremities. Gait is intact. RECTAL/GENITOURINARY: Refused and deferred. PSYCHIATRIC: Mood and affect is intact. Assessment/Plan Assessment/Plan ASSESSMENT: 1. Intentional overdose 2. Tylenol overdose. 3. Depression and anxiety. PLAN: Admit the patient to med/surg We will follow up with the Tylenol toxicity protocol with the start on Acetylcystine. Monitor laboratory closely including liver function tests. Follow up with Dr. Lovell from Pulmonary Critical Care and Dr. Camacho from GI. Jose Hess MD September 14, 2018 14:20
--- NOTE | 2018-09-14 14:58 | NUR ---
NURSE NOTES: Patient informed of discharge and stated she will call for her mother to come and pick her up then she reported mother is not answering phone and if I can get to my car parked 5minutes away I can go RN informed if she feel safe to be discharge alone by taxi, voucher can be provided. After the conversation patient reported strong abdominal pain and nausea pt. also vomited once 150cc. Zofran offered patient agreed and when the medication ready to give refused. will continue to monitor. RN also consulted Pharmacist Huyen if the pain is from Magnesium sulfate reaction since the patient is taking magnesium for the first time.
[2018-09-14 16:27] VITALS: BP 125/64
--- NOTE | 2018-09-14 19:20 | NUR ---
NURSE NOTES: Report taken from LULI Allen. Patient has been cleared for discharge. No signs of distress on room air. Patient is having some muscular pain, but does not want pain medication for fear of OD tendencies. Tried to contact her parents to see if they could pick her up and give her a ride to her car, no answer IV removed by RN. Patient able to go over belonging lists, signed by self. Instruction and information given to patient, signed. Will give patient taxi voucher for ride to her car.
[2018-09-14] MEDS ORDERED: D5 1/2NS 1000ml IV ONE (20:44)
--- NOTE | 2018-09-14 20:44 | NUR ---
NURSE NOTES: Taxi picked patient up at front door, escorted by RN out of hospital. Patient in stable condition.
--- NOTE | 2018-09-16 14:16 | Discharge Summary ---
Discharge Summary Discharge Summary _ DATE OF ADMISSION: 09/12/2018 DATE OF DISCHARGE: 09/14/2018 DISCHARGED BY: Dr. Medina REASON FOR ADMISSION: 23 years old female with past medical history significant for depression , anxiety, history of recent tonsillectomy ,presented to emergency room complaining of generalized body aches. Patient reported feeling sad and depressed. Patient took about half of the bottle of Tylenol , but was unsure of the strength of the Tylenol. Patient also took about 20 tablets of Vyvanse. She felt nauseous and reported epigastric pain . She vomited one time prior to arrival to ED. Patient denied alcohol or other drug use. Patient reported feeling depressed. Urine toxicology screen was positive for amphetamine. Tylenol level was 267 Patient started on Acetadote protocol . Patient was also given activated charcoal. Patient subsequently was admitted to ICU for further management. CONSULTANTS: pulmonary Dr. Lovell psychiatrist [facility]: Patient initially admitted to ICU. Patient started on the IV fluids. Patient was on Acetadote protocol. Patient was followed-up with a Tylenol level. LFT were closely monitored. LFT and bilirubin remained stable. Tylenol level trended down to less than 2. Patient started on diet as tolerated. Antiemetic were on board as needed. Patient was able to tolerate diet. DVT prophylaxis provided. Renal parameters and electrolytes were closely monitored, electrolytes corrected as needed , specifically magnesium and potassium. Patient was counseled on abstinence from street drugs. Sitter was at the bedside for safety. Patient follows up with therapist as outpatient . Recommended psychiatric evaluation for clearance. Patient was medically stable. Psychiatrist seen and evaluated patient. Per psychiatrist patient was not at imminent danger to self or others. Patient was not holdable. Per psychiatrist patient will not be started on any psychotropic medication at this time. Patient denied any suicidal ideation. Psychiatrist cleared patient for discharge. Patient remained hemodynamically stable. Patient was subsequently discharged home. Patient was counseled on abstinence from illicit street drugs. FINAL DIAGNOSES: Tylenol overdose Intentional drug overdose Amphetamine abuse Major depressive disorder, Anxiety disorder Hypokalemia Hypomagnesemia DISCHARGE MEDICATIONS: See Medication Reconciliation list. DISCHARGE INSTRUCTIONS: Patient was discharged home . Follow up with primary care provider in one week. Follow-up with her outpatient therapist as before. Miladis Gordon NP September 16, 2018 14:16
== END 2018-09-14 20:45 | disposition home or self-care (01) | DRG 918 ==
LOC: EDBD 20:16 → EMR 21:15 → EDBEDREQ 21:47 → ICU 22:04 → EDBEDREQ 22:12 → 3E 09-13 21:40
DX: T39.1X4A Poisoning by 4-Aminophenol derivatives, undetermined, initial encounter (principal); F32.9 Major depressive disorder, single episode, unspecified; T39.1X2A Poisoning by 4-Aminophenol derivatives, intentional self-harm, initial encounter; R10.84 Generalized abdominal pain; Y92.009 Unspecified place in unspecified non-institutional (private) residence as the place of occurrence of the external cause; F15.10 Other stimulant abuse, uncomplicated; F41.9 Anxiety disorder, unspecified; E87.6 Hypokalemia; E83.42 Hypomagnesemia
CPT/HCPCS: 36415; 36600; 80053; 80076; 80307; 80329; 81003; 81025; 82140; 82803; 83605; 83735; 84443; 84484; 85025; 85610; 85730; 87081; 87086; 93005; 94760; 96365; 96375; 99291; J2405; J8499